=== PATIENT | female | born 1985 | race Caucasian/White ===

== ENCOUNTER 2017-03-27 20:36 | Inpatient (IN) | payer BC, MEDICAID ==
[2017-03-28] MEDS ORDERED: Dibucaine 1% 28.35 GM TUBE PR PRN (05:18)
[2017-03-28] MEDS ORDERED: Glycerin ADULT SUPP PR PRN (05:18)
[2017-03-28] MEDS ORDERED: OXYTOCIN* 10 UNITS/ML 1 ML VIAL IM ONE (05:18)
[2017-03-28] MEDS ORDERED: Witch Hazel PAD* JAR TOPICAL PRN (05:18)
[2017-03-28] MEDS: Ibuprofen TAB* 600 MG PO PRN ×3 (06:10→18:45)
[2017-03-28] MEDS ORDERED: Oxytocin in LR* 40 UNITS/2,000 ML BAG IVPB ONE (06:31)
[2017-03-28] MEDS: Oxytocin in LR* 20 UNITS/1,000 ML BAG IVPB SCH ×3 (06:35→14:31)
[2017-03-28] MEDS ORDERED: fentaNYL* 50 MCG/ML 2 ML VIAL (100 MCG VIAL) IV SLOW PU ONE ×2 (06:35→07:00)
[2017-03-28] MEDS ORDERED: fentaNYL* 50 MCG/ML 2 ML VIAL (100 MCG VIAL) ONE (06:37)
[2017-03-28] MEDS ORDERED: fentaNYL* 50 MCG/ML 2 ML VIAL (100 MCG VIAL) IV SLOW PU PRN ×2 (06:41→07:01)
[2017-03-28] MEDS ORDERED: Misoprostol TAB* 200 MCG PR ONE (06:41)
[2017-03-28 06:43] LABS: Hematocrit 38 % (35-47); Hemoglobin 12.9 g/dl (12.0-16.0); Mean Corpuscular HGB Conc 34 g/dl (31-36); Mean Corpuscular Hemoglobin 31 pg (27-31); Mean Corpuscular Volume 90 fL (80-97); Mean Platelet Volume 8 um3 (7.4-10.4); Red Blood Count 4.19 10^6/ul (4.0-5.4); Red Cell Distribution Width 14 % (10.5-15); White Blood Count 14.6 10^3/ul (3.5-10.8)
[2017-03-28] MEDS ORDERED: Carboprost Tromethamine* 250 MCG INJ ONE (07:16)
[2017-03-28] MEDS ORDERED: Carboprost Tromethamine* 250 MCG INJ IM ONE (07:23)
[2017-03-28 07:37] LABS: Hematocrit 35 % (35-47); Hemoglobin 11.8 g/dl (12.0-16.0)
[2017-03-28] MEDS: Acetaminophen TAB* 325 MG PO PRN ×3 (10:27→20:51)
[2017-03-28] MEDS ORDERED: Influenza VAC *QUAD* 2017-18* 0.5 ML SYRINGE IM ONE (11:00)
[2017-03-28] MEDS: Docusate CAP* 100 MG PO SCH ×3 (11:05→20:48)
[2017-03-29] MEDS: Ibuprofen TAB* 600 MG PO PRN ×3 (01:00→14:12)
[2017-03-29] MEDS: Docusate CAP* 100 MG PO SCH ×2 (07:26→14:12)
[2017-03-29 07:27] VITALS: BP 115/69
[2017-03-29 07:53] LABS: Hematocrit 28 % (35-47); Hemoglobin 9.8 g/dl (12.0-16.0); Mean Corpuscular HGB Conc 35 g/dl (31-36); Mean Corpuscular Hemoglobin 31 pg (27-31); Mean Corpuscular Volume 91 fL (80-97); Mean Platelet Volume 8 um3 (7.4-10.4); Red Blood Count 3.12 10^6/ul (4.0-5.4); Red Cell Distribution Width 14 % (10.5-15); White Blood Count 6.6 10^3/ul (3.5-10.8)
[2017-03-29] MEDS ORDERED: Pneumococcal *Vac Polyvalent 0.5 ML VIAL IM ONE (09:00)
[2017-03-29] MEDS ORDERED: Ferrous Gluconate TAB* 324 MG TAB PO SCH (09:00)
[2017-03-29] MEDS ORDERED: Influenza VAC *QUAD* 2017-18* 0.5 ML SYRINGE IM ONE (11:38)
[2017-03-29] MEDS: Acetaminophen TAB* 325 MG PO PRN (12:41)
== END 2017-03-29 15:11 | disposition home or self-care (01) | DRG 560 ==
LOC: MCHOBOUT 20:36 → MCHOB 21:03
PROVIDERS: ADMIT Midwife; ATTEND Midwife
PROC: 10E0XZZ Delivery of Products of Conception, External Approach (ICD-10-PCS; principal; 2017-03-28)
PROC: 10907ZC Drainage of Amniotic Fluid, Therapeutic from Products of Conception, Via Natural or Artificial Opening (ICD-10-PCS; 2017-03-28)
PROC: 3E0E7GC Introduction of Other Therapeutic Substance into Products of Conception, Via Natural or Artificial Opening (ICD-10-PCS; 2017-03-28)
DX: O70.0 First degree perineal laceration during delivery (principal); O72.1 Other immediate postpartum hemorrhage; Z3A.39 39 weeks gestation of pregnancy; Z37.0 Single live birth
CPT/HCPCS: 36415; 85014; 85018; 85027; 86850; 86900; 86901; 90686; 90732; A9270-GY; J2590; J3010

== ENCOUNTER 2019-10-24 08:08 | Inpatient (IN) | payer BC, MEDICAID ==
[2019-10-24] MEDS ORDERED: Buffered Lidocaine 1% SYRIN* 1 ML/SYRINGE INTRADERM ONE (09:06)
[2019-10-24] MEDS ORDERED: Lactated Ringers 1000 ML Bag* 1,000 ML IV ONE (09:06)
[2019-10-24 09:49] LABS: Hematocrit 36 % (35-47); Hemoglobin 12.4 g/dL (12.0-16.0); Mean Corpuscular HGB Conc 34 g/dL (31-36); Mean Corpuscular Hemoglobin 29 pg (27-31); Mean Corpuscular Volume 86 fL (80-97); Platelet Count 218 10^3/uL (150-450); Red Blood Count 4.25 10^6 /uL (3.70-4.87); Red Cell Distribution Width 14 % (10-15); White Blood Count 7.9 10^3/uL (3.5-10.8)
[2019-10-24] MEDS ORDERED: TRANEXAMIC ACID 1 GM/100ML BAG 1,000 MG/100 ML BAG IV ONE (09:59)
[2019-10-24] MEDS ORDERED: Oxytocin in LR* 20 UNITS/1,000 ML BAG IVPB SCH ×2 (10:00→15:00)
[2019-10-24] MEDS ORDERED: Lactated Ringers 1000 ML Bag* 1,000 ML IV SCH ×2 (10:00→15:00)
--- NOTE | 2019-10-24 10:04 | HP ---
General Information - Reason for Visit , IUP@39+1 here for an elective IOL - General Information Maternal Age: 34 Grav: 4 Para: 3 SAB: 0 IEA: 0 Estimated Due Date: 10/30/19 Determined By: LMP Gestational Age in Weeks/Days: 39+1 Maternal Blood Type and Rh: A Positive - Results this Serology/RPR Result: Non-Reactive Rubella Result: Immune HBsAg Result: Negative HIV Result: Negative GBS Culture Result: Negative Past Medical History Delivery History: Hx Complicated Vaginal Delivery - Hx of PPH, Hx PPD Pertinent Past Medical History: See Records Past Medical History Comment: Asthma Anxiety Pertinent Past Surgical History: See Records Past Surgical History Comment: Left knee arthroscopy (2002) Right knee cap pinning (2003) Family History Comment: Father: brain damage, in wheelchair d/t accident Mother: ovarian cancer, dx'd age 38 sister 1: epilepsy PGF: d/t kidney, liver disease MGM: emphysema, BRCA, dx in 40s. d/t lung cancer. MGF: d/t MVA - Antepartal Records Antepartal Records: Reviewed, Uncomplicated Review of Systems Constitutional: Comfortable CV Complaint: No Respiratory: Shortness of Breath: No Gastrointestinal: No Nausea/Vomiting Genitourinary: No Dysuria, No Bleeding, No Leaking Fluid Musculoskeletal: No Epigastric Pain, Contractions Neurological: No Visual Changes Movement: Normal Exam Allergies/Adverse Reactions: Allergies prochlorperazine [From Compazine] Allergy (Verified 10/24/19 09:10) Shakes 98.9, HR 110, RR 18, BP 127/86, O2 98 Lab Values - Entire Visit: Laboratory Tests 10/24/19 10/24/19 09:00 09:00 WBC 7.9 RBC 4.25 Hgb 12.4 Hct 36 MCV 86 MCH 29 MCHC 34 RDW 14 Plt Count 218 MPV 8.0 Blood Type A Positive - Measurements Height: 5 ft 4 in Weight: 185 lb Weight in lbs: 185.684548 Body Mass Index (BMI): 31.7 Pre- Weight: 130 lb Weight Gained This : 55 lbs and 0 ozs - Exam Breast: Breast Exam Deferred CVA: No CVA Tenderness Extremities: Edema Heart: Normal Rhythm/Heart Sounds HEENT: No Significant Findings Lungs: Clear Bilaterally Rectal: Rectal Exam Deferred - Abdominal Exam Abdomen Exam: Non-Tender - Ultrasound/Biophysical Profile Ultrasound Status: Not Done Targeted Exam Findings Estimated Weight: 7.5lbs Cervical Exam: 2cm Effacement: 50% Station: -2 Presenting Part: Vertex Membrane Status: AROM - small amount, clear fluids Bleeding/Discharge: None EFM Findings - External Monitor Findings Baseline Heart Rate: 140 External Monitor Findings: Accelerations Present, No Pattern of Variable or Late Decelerations, Variability Moderate, Baseline Stable External Monitor Findings Comment: no evidence of metabolic acidemia Contractions: None Assessment/Plan - Assessment , IUP@39+1, here for an elective IOL GBS negative, A+, RI Hx of PPH, Hx of PPD, otherwise uncomplicated No evidence of metabolic acidemia Not tia - Plan Plan: Admit - Anticipate Vaginal Delivery Plan Comment: PARQ discussion about AROM and Pitocin for labor induction. Pt in agreement with plan. AROM to clear fluid. PARQ discussion about plan for active management of third stage - to include prophylactic TXA. Start low-dose pitocin. Monitoring per protocol. VE prn. pain meds prn Anticipate - Date/Time of Admission Date of Admission: 10/24/19 Time of Admission: 09:00
[2019-10-24 10:10] LABS: Urine Benzodiazepine Screen None Detected (None Detect); Urine Opiates Screen None Detected (None Detect)
[2019-10-24 10:31] LABS: ABS Eosinophils 0.1 10^3/ul (0-0.6); ABS Monocytes 0.8 10^3/ul (0-0.8); ABS Neutrophils 6.1 10^3/ul (1.5-7.7); Eosinophil % 0.9 %; Lymphocyte % 12.1 %
--- NOTE | 2019-10-24 12:55 | PN ---
Progress Note - Progress Note Date of Service: 10/24/19 Note: Called by RN, pt would like to labor in the tub Unable to use EFM in tub Okay to discontinue Pitocin at this time. Consider restarting if labor stalls Intermittent monitoring per protocol Anticipate progression to
[2019-10-24] MEDS ORDERED: Witch Hazel PAD* JAR TOPICAL PRN (14:19)
[2019-10-24] MEDS ORDERED: Dibucaine 1% 28.35 GM TUBE PR PRN (14:19)
[2019-10-24] MEDS ORDERED: Glycerin ADULT SUPP PR PRN (14:19)
--- NOTE | 2019-10-24 14:22 | PROCNOTE ---
[facility] OB: Delivery Note - Delivery A Date of : 10/24/19 Time of : 14:03 [place] Sex: Female Weight at : 7 lb 10 oz Score 1 Minute: 9 Score 5 Minutes: 9 Gestational Age in Weeks and Days at Delivery: 39 Weeks and 1 Days Delivery Method: Spontaneous Vaginal Labor: Induced Did Patient attempt ?: N/A, No Previous Amniotic Fluid: Clear Estimated Blood Loss: 250 Anesthesia/Analgesia: None Delivered By: Joanna Lai Nursery Level of Nursery: Regular/Bedside - Perineum Perineal Injury: None/Intact Perineal Injury Comment: small left labial abrasion - not repaired - Events Delivery Events of Note: Pitocin During Labor, Precipitous Delivery - Additional Delivery Notes Additional Delivery Notes: Pt was admitted for an elective IOL. Forebag artificially ruptured with scant clear fluid at 0848 and pitocin started. SROM of upper bag followed at 1129. Pt progressed to complete and complete. Normal spontaneous vertex delivery of live female, Apgars 9/9. Delivered right occipital-anterior (JOSE), no nuchal cord, terminal meconium noted. Body delivered without difficulty by mother and brought to abdomen. Given pt hx of PPH, Pitocin initiated via IVPB after delivery of body. Cord clamped and cut by delivering provider for active management of TSL. Placenta delivered with gentle traction via hoang, appears intact, 3vc. Tranexamic acid given prophylactically via IVPB. Perineum and vagina inspected. Small left labial abrasions noted; hemostatic, not repaired. EBL 250mL. Mom and baby stable at time of note.
[2019-10-24] MEDS ORDERED: Simethicone TAB* 80 MG TAB.CHEW PO SCH (17:30)
[2019-10-24] MEDS: Ibuprofen TAB* 600 MG PO PRN (20:25)
[2019-10-24] MEDS: Docusate CAP* 100 MG PO SCH (20:25)
[2019-10-24] MEDS: Acetaminophen TAB* 325 MG PO PRN (21:54)
[2019-10-25] MEDS: Acetaminophen TAB* 325 MG PO PRN ×3 (02:42→14:13)
[2019-10-25] MEDS: Ibuprofen TAB* 600 MG PO PRN ×3 (02:42→14:14)
[2019-10-25 07:22] LABS: Hematocrit 35 % (35-47); Hemoglobin 11.8 g/dL (12.0-16.0); Mean Corpuscular HGB Conc 34 g/dL (31-36); Mean Corpuscular Hemoglobin 29 pg (27-31); Mean Corpuscular Volume 86 fL (80-97); Mean Platelet Volume 7.9 fL (7.4-10.4); Platelet Count 189 10^3/uL (150-450); Red Blood Count 4.06 10^6 /uL (3.70-4.87); Red Cell Distribution Width 14 % (10-15); White Blood Count 10.4 10^3/uL (3.5-10.8)
[2019-10-25 07:32] LABS: ABS Basophils 0.1 10^3/ul (0-0.2); ABS Eosinophils 0.1 10^3/ul (0-0.6); ABS Lymphocytes 1.1 10^3/ul (1.0-4.8); ABS Monocytes 1.1 10^3/ul (0-0.8); ABS Neutrophils 8.1 10^3/ul (1.5-7.7); Eosinophil % 1.1 %; Lymphocyte % 10.8 %
[2019-10-25] MEDS: Docusate CAP* 100 MG PO SCH ×2 (08:23→14:13)
[2019-10-25] MEDS ORDERED: Ferrous Gluconate TAB* 324 MG TAB PO SCH (09:00)
[2019-10-25 11:57] VITALS: BP 125/86
== END 2019-10-25 15:10 | disposition home or self-care (01) | DRG 560 ==
LOC: MCHOBOUT 08:08 → MCHOB 09:10
PROVIDERS: ADMIT Advanced Practice Midwife; ATTEND Advanced Practice Midwife
PROC: 10E0XZZ Delivery of Products of Conception, External Approach (ICD-10-PCS; principal; 2019-10-24)
PROC: 3E033VJ Introduction of Other Hormone into Peripheral Vein, Percutaneous Approach (ICD-10-PCS; 2019-10-24)
PROC: 10907ZC Drainage of Amniotic Fluid, Therapeutic from Products of Conception, Via Natural or Artificial Opening (ICD-10-PCS; 2019-10-24)
DX: O99.52 Diseases of the respiratory system complicating childbirth (principal); Z37.0 Single live birth; O99.344 Other mental disorders complicating childbirth; F41.9 Anxiety disorder, unspecified; O77.0 Labor and delivery complicated by meconium in amniotic fluid; O70.0 First degree perineal laceration during delivery; O62.3 Precipitate labor; Z3A.39 39 weeks gestation of pregnancy
CPT/HCPCS: 36415; 80307; 85025; 86850; 86900; 86901; A9270-GY; G0480

== ENCOUNTER 2023-07-20 07:26 | Inpatient (IN) ==
[2023-07-20] MEDS ORDERED: Lidocaine 1% VIAL 10 MG/ML 30 ML VIAL INJ PRN (09:17)
[2023-07-20] MEDS ORDERED: Lactated Ringers 1000 ml BAG 1,000 ML IV ONE (09:17)
[2023-07-20] MEDS ORDERED: Oxytocin in LR 20,000 MILLI.UNIT/1,000 ML BAG IV SCH ×2 (09:20→15:30)
[2023-07-20] MEDS ORDERED: Lactated Ringers 1000 ml BAG 1,000 ML IV SCH ×2 (10:00→16:00)
[2023-07-20 10:10] LABS: Urine Appearance Clear; Urine Bilirubin Negative (Negative); Urine Blood 3+ (Negative); Urine Color Straw; Urine Glucose Negative (Negative); Urine Ketones Negative (Negative); Urine Nitrite Negative (Negative); Urine Protein Negative (Negative); Urine Specific Gravity 1.004 (1.002-1.030); Urine Urobilinogen Negative (Negative)
[2023-07-20 10:13] LABS: Hematocrit 35.3 % (35-45); Hemoglobin 11.5 g/dL (11.5-14.3); Mean Corpuscular Hemoglobin 25.7 pg (27-33); Mean Corpuscular Hgb Conc 32.7 g/dL (31-36); Mean Corpuscular Volume 78.5 fL (80-97); Mean Platelet Volume 8.1 fL (7.5-11.2); Platelet Count 254 10^3/uL (150-450); Red Blood Count 4.49 10^6/uL (3.63-4.92); Red Cell Distribution Width 15.6 % (12-17); White Blood Count 10.1 10^3/uL (3.8-11.8)
[2023-07-20 10:27] LABS: Urine Bacteria Absent (Absent); Urine Red Blood Cell Trace(0-2/hpf) (Absent); Urine Squamous Epithelial Cell Present (Absent); Urine White Blood Cell Trace(0-5/hpf) (Absent)
[2023-07-20 10:28] LABS: Urine Benzodiazepine Screen None Detected (None Detect); Urine Cannabinoids Screen None Detected (None Detect); Urine Opiates Screen None Detected (None Detect)
[2023-07-20 10:50] LABS: ABS Eosinophils 0.1 10^3/uL (0.0-0.5); ABS Monocytes 0.7 10^3/uL (0.0-0.9); ABS Neutrophils 8.3 10^3/uL (1.5-7.6); ABS Nucleated RBC 0.01 10^3/ul; Eosinophil % 0.9 %; Lymphocyte % 10.1 %; Microcytosis 1+; Nucleated Red Blood Cells % 0.1 %/100WBC (0.0-0.8)
[2023-07-20 14:12] LABS: Urine Creatinine Concentration 15.49 mg/dL (20.00-320.00); Urine TP Creat Ratio 0.38 mg/mg
[2023-07-20 14:21] LABS: Albumin 3.3 g/dL (3.2-5.2); Albumin/Globulin Ratio 1.2 (1-3); Calcium 8.3 mg/dL (8.6-10.3); Creatinine, Serum 0.39 mg/dL (0.51-0.95); Globulin 2.8 g/dL (2-4); Total Bilirubin 0.4 mg/dL (0.2-1.0); Total Protein 6.1 g/dL (6.4-8.9); Uric Acid 4.6 mg/dL (2.3-6.6); eGFR CKD-EPI 131.4 (>60)
[2023-07-20] MEDS ORDERED: Dibucaine 1% OINT 28.35 GM TUBE PR PRN (15:27)
[2023-07-20] MEDS ORDERED: Witch Hazel PAD JAR TOPICAL PRN (15:27)
[2023-07-20] MEDS ORDERED: ceFAZolin 2 GM in NS PREMIX 2 GM/100 ML BAG IVPB ONE (16:10)
[2023-07-21 07:10] LABS: Hematocrit 25.9 % (35-45); Hemoglobin 8.5 g/dL (11.5-14.3); Mean Corpuscular Hemoglobin 25.9 pg (27-33); Mean Corpuscular Hgb Conc 32.8 g/dL (31-36); Mean Corpuscular Volume 78.8 fL (80-97); Platelet Count 234 10^3/uL (150-450); Red Blood Count 3.28 10^6/uL (3.63-4.92); White Blood Count 10.1 10^3/uL (3.8-11.8)
[2023-07-21 07:37] LABS: ABS Eosinophils 0.1 10^3/uL (0.0-0.5); ABS Lymphocytes 1.1 10^3/uL (1.0-4.8); ABS Monocytes 0.9 10^3/uL (0.0-0.9); ABS Nucleated RBC 0.01 10^3/ul; Eosinophil % 1.3 %; Nucleated Red Blood Cells % 0.1 %/100WBC (0.0-0.8)
[2023-07-21] MEDS ORDERED: Iron Sucrose 200 MG in NS 0.9% 100 ml BAG 100 ML IVPB ONE (09:31)
[2023-07-22 08:50] VITALS: BP 132/79
== END 2023-07-22 11:00 | disposition home or self-care (01) | DRG 560 ==
LOC: MCHOBOUT 07:26 → MCHOB 09:16
PROVIDERS: ADMIT Midwife; ATTEND Midwife